=== PATIENT | female | born 1970 | race Caucasian/White ===

== ENCOUNTER 2020-03-21 22:15 | Observation (INO) | payer BC ==
[2020-03-21] MEDS ORDERED: ASPIRIN 81 MG CHEWABLE TABLET ONE (22:58)
[2020-03-21] MEDS ORDERED: NA CHLORIDE 0.9% 1,000 ML ONE (22:58)
[2020-03-21] MEDS ORDERED: NITROGLYCERIN 0.4 MG/TAB SL ONE (22:58)
[2020-03-21 23:13] LABS: Absolute Lymphocytes (CBC) 2.4 K/uL (0.7-4.9); Basophils % 0.6 % (0-1.3); Hematocrit 35.4 % (36.0-45.0); Lymphocytes % 44.4 % (15.3-44.8); MPV 7.8 fL (7.6-11.3); RBC Red Blood Cell Count 3.75 M/uL (3.86-4.86)
[2020-03-21 23:14] LABS: Protime INR 0.99
[2020-03-21 23:34] LABS: ALT/SGPT 23 U/L (12-78); AST/SGOT 17 U/L (15-37); Alkaline Phosphatase 71 U/L (45-117); BUN Blood Urea Nitrogen 20 mg/dL (7-18); Bicarbonate 29 mmol/L (21-32); Bilirubin Direct < 0.1 mg/dL (0-0.2); Bilirubin Total 0.2 mg/dL (0.2-1.0); Glucose Level 92 mg/dL (74-106); Lipase 213 U/L (73-393); Magnesium 2.3 mg/dL (1.8-2.4); NT PRO-BNP 77 pg/mL (<125); Potassium 3.5 mmol/L (3.5-5.1); Protein, Total 7.5 g/dL (6.4-8.2); Sodium Level 144 mmol/L (136-145); Troponin (Emerg Dept Use Only) < 0.02 ng/mL (0.0-0.045)
[2020-03-21] MEDS ORDERED: LIDOCAINE VISCOUS 2% SOLN 15 ML UDC ONE (23:58)
[2020-03-21] MEDS ORDERED: MAGNE/ALUM HYDROXD 30 ML UCUP ONE (23:58)
--- NOTE | 2020-03-22 00:18 | EDPHYS ---
Physician Documentation [facility] Name: Jazzy Rosa Age: 50 yrs Sex: Female : 1970 Arrival Date: 03/21/2020 Time: 22:16 Bed 18 Private MD: ED Physician Nestor Mondragon HPI: 03/21 23:00 This 50 yrs old Female presents to ER via Ambulatory with complaints of Chest cp Pain. 23:00 The patient or guardian reports chest pain that is located primarily in the substernal cp area, anterior chest wall. 23:00 Onset: today, at 19:30. cp 23:00 The pain does not radiate. The chest pain is described as a pressure. Duration: The cp patient or guardian reports a single episode, that is still ongoing, but improving. 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 RECYCLER: 22:20 LMP N/A - Post-menopause fc Historical: - Allergies: 22:46 No Known Allergies; fc - Home Meds: 22:46 Synthroid 75 mcg Oral tab 1 tab once daily [Active]; Edarbi 80 mg oral tab 1 tab once fc daily [Active]; - PMHx: 22:46 SVT; Frequent PVC's; Hypertension; Hypothyroidism; mitral valve prolapse; fc - PSHx: 22:46 Heart Ablasion; Thyroidectomy; Gastric Sleeve; fc - Immunization history:: Last tetanus immunization: up to date Flu vaccine is not up to date. - Social history:: Smoking status: Patient denies any tobacco usage or history of. Patient uses alcohol, occasionally. Patient/guardian denies using street drugs. ROS: 23:05 Cardiovascular: Positive for chest pain, Negative for edema, palpitations. cp 23:05 Eyes: Negative for injury, pain, redness, and discharge. cp 23:05 Constitutional: Negative for body aches, chills, fever, poor PO intake. 23:05 Respiratory: Negative for cough, shortness of breath, wheezing. 23:05 Abdomen/GI: Positive for nausea, Negative for abdominal pain, vomiting, diarrhea, constipation. 23:05 Back: Positive for pain at rest, of the left scapular area. 23:05 Neuro: Negative for altered mental status, headache, loss of consciousness, syncope, weakness. 23:05 All other systems are negative. Exam: 22:40 ECG was reviewed by the Attending Physician. cp 23:10 Constitutional: The patient appears in no acute distress, alert, awake, cp non-diaphoretic, non-toxic, well developed, well nourished. 23:10 Head/Face: Normocephalic, atraumatic. cp 23:10 Eyes: Periorbital structures: appear normal, Conjunctiva: normal, no exudate, no injection, Sclera: no appreciated abnormality, Lids and lashes: appear normal, bilaterally. 23:10 ENT: External ear(s): are unremarkable, Nose: is normal, Mouth: Lips: moist, Oral mucosa: moist, Posterior pharynx: Airway: no evidence of obstruction, patent. 23:10 Neck: ROM/movement: is normal, is supple, no range of motions limitations, no meningismus, no nuchal rigidity. 23:10 Chest/axilla: Inspection: normal, Palpation: is normal, no crepitus, no tenderness. 23:10 Cardiovascular: Rate: normal, Rhythm: regular, Pulses: Pulses are 2+ in right radial artery and left radial artery. Edema: is not appreciated, JVD: is not appreciated. 23:10 Respiratory: the patient does not display signs of respiratory distress, Respirations: normal, no use of accessory muscles, no retractions, labored breathing, is not present, Breath sounds: are clear throughout, no decreased breath sounds, no stridor, no wheezing. 23:10 Abdomen/GI: Inspection: abdomen appears normal, Bowel sounds: active, all quadrants, Palpation: soft, in all quadrants, mild abdominal tenderness, in the epigastric area, rebound tenderness, is not appreciated, voluntary guarding, is not appreciated, involuntary guarding, is not appreciated. 23:10 Back: ROM is normal. 23:10 Neuro: Orientation: to person, place \T\ time. Mentation: is normal, Motor: moves all fours, strength is normal. Vital Signs: 22:20 BP 126 / 81; Pulse 90; Resp 18; Temp 98.1(O); Pulse Ox 100% on R/A; Weight 86.18 kg fc (R); Height 5 ft. 6 in. (167.64 cm) (R); Pain 5/10; 23:03 BP 111 / 71; Pulse 73; Resp 16 S; Pulse Ox 99% on R/A; Pain 4/10; bb 23:50 BP 105 / 67; Pulse 83; Resp 14 S; Pulse Ox 96% on R/A; Pain 2/10; bb 03/22 00:40 BP 113 / 66; Pulse 58; Resp 14 S; Pulse Ox 100% on R/A; bb 02:27 BP 104 / 60; Pulse 59; Resp 14 S; Pulse Ox 99% on R/A; bb 03/21 22:20 Body Mass Index 30.67 (86.18 kg, 167.64 cm) fc MDM: 03/21 22:31 Patient medically screened. cp 23:00 Differential diagnosis: abnormal EKG, acute myocardial infarction, cholecystitis, cp Cholelithiasis esophagitis, gastritis, gastroesophageal reflux disease (GERD), pancreatitis, pulmonary embolus, stable angina, unstable angina. 23:36 The patient was given aspirin in the Emergency Department. cp 03/22 00:15 Physician consultation: Jean CASE was called at 00:15, was contacted at cp 00:15, regarding admission, to the telemetry unit. patient's condition. 00:16 Data reviewed: vital signs, nurses notes, lab test result(s), EKG, radiologic studies, cp plain films, I have discussed the patient's presentation/case with the attending Emergency Department Physician; and as a result, I will admit patient. 00:16 Test interpretation: by ED physician or midlevel provider: ECG, chest xray negative for cp infiltrates. 03/21 22:40 Order name: Basic Metabolic Panel; Complete Time: 23:35 cp 03/21 23:35 Interpretation: Normal except: CL 109; BUN 20; GFR 57. cp 03/21 22:40 Order name: CBC with Diff; Complete Time: 23:35 cp 03/21 22:40 Order name: LFT's; Complete Time: 23:35 cp 03/21 22:40 Order name: Magnesium; Complete Time: 23:35 cp 03/21 22:40 Order name: NT PRO-BNP; Complete Time: 23:35 cp 03/21 22:40 Order name: PT-INR; Complete Time: 23:35 cp 03/21 22:40 Order name: Troponin (emerg Dept Use Only); Complete Time: 23:35 cp 03/21 23:36 Interpretation: Within normal limits: TROPED < 0.02. cp 03/21 22:40 Order name: Lipase; Complete Time: 23:35 cp 03/22 00:46 Order name: COVID-19 ar5 03/22 01:16 Order name: Basic Metabolic Panel EDMS 03/22 01:16 Order name: Basic Metabolic Panel EDMS 03/22 01:16 Order name: Lipid Profile EDMS 03/22 01:16 Order name: Lipid Profile EDMS 03/22 01:16 Order name: Protime (+INR) EDMS 03/21 22:40 Order name: XRAY Chest (1 view) cp 03/21 22:40 Order name: EKG; Complete Time: 22:41 cp 03/21 22:40 Order name: Cardiac monitoring; Complete Time: 22:44 cp 03/22 01:13 Order name: CONS Physician Consult EDMS 03/22 01:16 Order name: Protime (+INR) EDMS 03/22 01:16 Order name: PTT, Activated Partial Thromb EDMS 03/22 01:16 Order name: PTT, Activated Partial Thromb EDMS 03/22 01:17 Order name: NPO EDMS 03/22 01:18 Order name: Echo with Doppler EDMS 03/22 05:19 Order name: Troponin I EDMS 03/21 22:40 Order name: EKG - Nurse/Tech; Complete Time: 22:44 cp 03/21 22:40 Order name: IV Saline Lock; Complete Time: 23:01 cp 03/21 22:40 Order name: Labs collected and sent; Complete Time: 23:01 cp 03/21 22:40 Order name: O2 Per Protocol; Complete Time: 22:44 cp 03/21 22:40 Order name: O2 Sat Monitoring; Complete Time: 22:44 cp EC/06 22:40 Rate is 74 beats/min. Rhythm is regular. PA interval is normal. QRS interval is normal. cp QT interval is normal. T waves are Flattened in leads III, V2, V3. Interpreted by me. Reviewed by me. Administered Medications: 22:50 Drug: Aspirin Chewable Tablet 324 mg Route: PO; bb 23:48 Follow up: Response: No adverse reaction bb 22:50 Drug: Nitroglycerin 0.4 mg Route: Sublingual; bb 23:48 Follow up: Response: No adverse reaction bb 22:58 Drug: NS 0.9% 1000 ml Route: IV; Rate: 1000 ml/hr; Site: right antecubital; bb 23:59 Follow up: IV Status: Completed infusion; IV Intake: 1000ml bb 23:49 Drug: GI Cocktail without - (Maalox Suspension 30 ml, Lidocaine Liquid 2 % 15 bb ml) Route: PO; 03/22 00:39 Follow up: Response: No adverse reaction; No change in condition bb 00:53 Drug: NS 0.9% 500 ml Route: IV; Rate: bolus; Site: right antecubital; bb 01:52 Follow up: IV Status: Completed infusion; IV Intake: 500ml bb 01:52 Drug: NS 0.9% 500 ml Route: IV; Rate: 125 ml/hr; Site: right antecubital; bb 01:52 Follow up: IV Status: Infusion continued upon admission bb Disposition: 03/22/20 00:17 Hospitalization ordered by Leanne Nevarez for Observation. Preliminary diagnosis is Chest pain, unspecified. - Bed requested for Telemetry/MedSurg (observation). - Status is Observation. jb4 - Condition is Stable. - Problem is new. - Symptoms have improved. Addendum: 04/03/2020 18:58 Co-signature as Attending Physician, Nestor Mondragon MD. p pierce Signatures: Dispatcher [employer] EDNestor Renteria MD MD pkl Chretien, Felicia, RN RN fc Ballard, Brenda, RN RN bb Page, Corey, PA PA cp Garcia, Cindy, RN RN cg Bryson, James, RN RN jb4 Sierra Corbett ar5 Corrections: (The following items were deleted from the chart) 03/21 22:39 22:20 Social history: Smoking status: Patient denies any tobacco usage or history of. fc Patient/guardian denies using alcohol, street drugs, fc 03/22 01:39 00:17 Hospitalization Ordered by Leanne Nevarez MD for Observation. Preliminary ar5 diagnosis is Chest pain, unspecified. Bed requested for Telemetry/MedSurg (observation). Status is Observation. Condition is Stable. Problem is new. Symptoms have improved. cp 05:09 01:39 03/22/2020 00:17 Hospitalization Ordered by Leanne Nevarez MD for Observation. cg Preliminary diagnosis is Chest pain, unspecified. Bed requested for [facility] ER HOLD. Status is Observation. Condition is Stable. Problem is new. Symptoms have improved. ar5 06:00 05:09 03/22/2020 00:17 Hospitalization Ordered by Leanne Nevarez MD for Observation. jb4 Preliminary diagnosis is Chest pain, unspecified. Bed requested for Telemetry/MedSurg (observation). Status is Observation. Condition is Stable. Problem is new. Symptoms have improved. cg
--- NOTE | 2020-03-22 00:18 | ER ---
Nurse's Notes [facility] Name: Jazzy Rosa Age: 50 yrs Sex: Female : 1970 Arrival Date: 03/21/2020 Time: 22:16 Bed 18 Private MD: Diagnosis: Chest pain, unspecified Presentation: 03/21 22:20 Chief complaint: Patient states: that she is having heavy chest pressure along with fc epigastric pain and nausea but denies any shortness of breath or vomiting. Saw Dr Morrell in [place] today (her manuscripts curator) and a Holter monitor was place on her. Coronavirus screen: Client denies travel out of the [place] in the last 14 days. Ebola Screen: Patient negative for fever greater than or equal to 101.5 degrees Fahrenheit, and additional compatible Ebola Virus Disease symptoms Patient denies exposure to infectious person. Patient denies travel to an Ebola-affected area in the 21 days before illness onset. Initial Sepsis Screen: Does the patient meet any 2 criteria? No. Patient's initial sepsis screen is negative. Does the patient have a suspected source of infection? No. Patient's initial sepsis screen is negative. Risk Assessment: Do you want to hurt yourself or someone else? Patient reports no desire to harm self or others. Onset of symptoms was March 21, 2020 at 19:30. 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 - Social history:: Smoking status: Patient denies any tobacco usage or history of. Patient uses alcohol, occasionally. Patient/guardian denies using street drugs. Screenin:20 Abuse screen: Denies threats or abuse. Nutritional screening: No deficits noted. fc Tuberculosis screening: No symptoms or risk factors identified. Fall Risk None identified. Assessment: 22:30 General: Appears in no apparent distress. uncomfortable, well groomed, Behavior is bb calm, cooperative. Pain: Complains of pain in chest Pain does not radiate. Pain currently is 4 out of 10 on a pain scale. Pain began earlier tonight Aggravated by no aggravating factors. Neuro: Level of Consciousness is awake, alert, obeys commands, Oriented to person, place, time, situation. Cardiovascular: Heart tones present Capillary refill < 3 seconds Patient's skin is warm and dry. Pulses are all present. Edema is absent. Respiratory: Airway is patent Respiratory effort is even, unlabored, Respiratory pattern is regular, Breath sounds are clear bilaterally. GI: Abdomen is non-distended, Bowel sounds present X 4 quads. Abd is soft and non tender X 4 quads. : No signs and/or symptoms were reported regarding the genitourinary system. Derm: Skin is pink, warm \T\ dry. Musculoskeletal: Circulation, motion, and sensation intact. 22:30 Reassessment: pt wearing Holter monitor. bb 23:33 Reassessment: Patient is alert, oriented x 3, equal unlabored respirations, skin bb warm/dry/pink. pt states chest pressure is still there but not as bad, awaiting diagnostic results. 03/22 00:39 Reassessment: Patient and/or family updated on plan of care and expected duration. Pain bb level reassessed. Patient is alert, oriented x 3, equal unlabored respirations, skin warm/dry/pink. pt instructed on need for admission by Robert Mcdonough PA verbalized understanding of and agrees to plan of care. IV site intact, patent no erythema or edema noted, awaiting room assignment. 00:54 Reassessment: Raúl CASE at bedside for discussion of admission. Pt states pain bb is still there but does not need pain medication at this time. 05:17 Reassessment: attempted to call report, instructed to wait for call back. jb4 06:00 Reassessment: Patient appears in no apparent distress at this time. Patient and/or jb4 family updated on plan of care and expected duration. Pain level reassessed. Patient is alert, oriented x 3, equal unlabored respirations, skin warm/dry/pink. Vital Signs: 03/21 22:20 BP 126 / 81; Pulse 90; Resp 18; Temp 98.1(O); Pulse Ox 100% on R/A; Weight 86.18 kg fc (R); Height 5 ft. 6 in. (167.64 cm) (R); Pain 5/10; 23:03 BP 111 / 71; Pulse 73; Resp 16 S; Pulse Ox 99% on R/A; Pain 4/10; bb 23:50 BP 105 / 67; Pulse 83; Resp 14 S; Pulse Ox 96% on R/A; Pain 2/10; bb 03/22 00:40 BP 113 / 66; Pulse 58; Resp 14 S; Pulse Ox 100% on R/A; bb 02:27 BP 104 / 60; Pulse 59; Resp 14 S; Pulse Ox 99% on R/A; bb 03/21 22:20 Body Mass Index 30.67 (86.18 kg, 167.64 cm) ED Course: 03/21 22:16 Patient arrived in ED. cl3 22:20 Arm band placed on Patient placed in a hallway bed, on a stretcher. fc 22:20 Patient has correct armband on for positive identification. Placed in gown. Bed in low fc position. Call light in reach. Side rails up X 1. vehicle monitor technician on. Pulse ox on. NIBP on. 22:20 No provider procedures requiring assistance completed. fc 22:29 Robert Mcdonough PA is PHCP. cp 22:29 Nestor Mondragon MD is Attending Physician. cp 22:29 Em Cruz RN is Primary Nurse. bb 22:39 Triage completed. fc 22:55 Initial lab(s) drawn, by me, sent to lab. EKG done, by ED staff, reviewed by Robert CASE. Inserted saline lock: 20 gauge in right antecubital area, using aseptic technique. Blood collected. Patient maintains SpO2 saturation greater than 95% on room air. 23:40 XRAY Chest (1 view) In Process Unspecified. EDMS 03/22 00:17 Leanne Nevarez MD is Hospitalizing Provider. cp 00:55 Patient admitted, IV remains in place. bb 02:28 Report given to Abraham Hair RN. bb Administered Medications: 03/21 22:50 Drug: Aspirin Chewable Tablet 324 mg Route: PO; bb 23:48 Follow up: Response: No adverse reaction bb 22:50 Drug: Nitroglycerin 0.4 mg Route: Sublingual; bb 23:48 Follow up: Response: No adverse reaction bb 22:58 Drug: NS 0.9% 1000 ml Route: IV; Rate: 1000 ml/hr; Site: right antecubital; bb 23:59 Follow up: IV Status: Completed infusion; IV Intake: 1000ml bb 23:49 Drug: GI Cocktail without - (Maalox Suspension 30 ml, Lidocaine Liquid 2 % 15 bb ml) Route: PO; 03/22 00:39 Follow up: Response: No adverse reaction; No change in condition bb 00:53 Drug: NS 0.9% 500 ml Route: IV; Rate: bolus; Site: right antecubital; bb 01:52 Follow up: IV Status: Completed infusion; IV Intake: 500ml bb 01:52 Drug: NS 0.9% 500 ml Route: IV; Rate: 125 ml/hr; Site: right antecubital; bb 01:52 Follow up: IV Status: Infusion continued upon admission bb Intake: 03/21 23:59 IV: 1000ml; Total: 1000ml. bb 03/22 01:52 IV: 500ml; Total: 1500ml. bb Outcome: 00:17 Decision to Hospitalize by Provider. cp 00:55 Instructed on the need for admit. bb 01:52 Admitted to ER Hold. Please see [facility] for further documentation. bb 01:52 Condition: stable 06:00 Admitted to Med/surg accompanied by tech, via stretcher, with chart, Report called to benjie Betancourt RN 06:00 Condition: stable 06:00 Discharge instructions given to patient, Instructed on the need for admit, Demonstrated understanding of instructions. 06:00 Patient left the ED. benjie Signatures: Dispatcher [employer] EDMS Missy Romero RN RN fc Ballard, Brenda, RN RN bb Page, Corey, PA PA cp Bryson, James, RN RN jb4 Lewis, Charde cl3 Corrections: (The following items were deleted from the chart) 03/21 22:39 22:20 Social history: Smoking status: Patient denies any tobacco usage or history of. fc Patient/guardian denies using alcohol, street drugs, fc
[2020-03-22] MEDS ORDERED: NA CHLORIDE 0.9% 1,000 ML ONE (00:59)
--- NOTE | 2020-03-22 01:37 | P.HP ---
Certification for Inpatient Patient admitted to: Observation With expected LOS: <2 Midnights Patient will require the following post-hospital care: None Practitioner: I am a practitioner with admitting privileges, knowledge of patient current condition, hospital course, and medical plan of care. Services: Services provided to patient in accordance with Admission requirements found in Title 42 Section 412.3 of the Code of Federal Regulations Patient History Date of Service: 03/22/20 Reason for admission: Acute Coronary Syndrome History of Present Illness: 50-year-old female with past medical history of mitral valve prolapse, cardiac ablation in 2016 for SVT and frequent PVCs, hypertension and hyperthyroidism presents to the emergency room complaining of chest pain. Patient states that she felt a pressure in the midsternum and states that it will intermittently radiate to the left arm underneath her axilla. States the onset was earlier today. States that she was concerned because she has had a history of rapid heart beats and PVCs that resulted in a cardiac ablation in 2016. States she has been doing great until recently and today she had chest pain which prompted her to come to the emergency room. States that her chest pain felt different than anything before. In the emergency room patient is alert and oriented x3, in no distress, pleasant and cooperative. Her lab work is fairly unremarkable. Her troponin is <0.02 x1. Rest of lab work is fairly unremarkable. EKG does show some flat T-waves in aVL and V2 and some slight inversion of T-waves in V2 and V3. Patient sees a security management specialist in [place] and is currently wearing a Holter monitor. States she has a stress test scheduled for morning and follow up with security management specialist at the time. Patient will be placed in observation and further evaluated. Allergies No Known Allergies Allergy (Unverified 03/22/20 01:22) - Past Medical/Surgical History Diabetic: No -: Cardiac ablation in 2016 -: History of SVT and PVCs -: Essential hypertension -: Hypothyroidism -: History of mitral valve prolapse -: Heart ablation -: Thyroidectomy -: Gastric sleeve Psychosocial/ Personal History: Lives at home, - Family History Family History: Reviewed- Non-Contributory - Social History Smoking Status: Never smoker Alcohol use: No CD- Drugs: No Caffeine use: No Place of Residence: Home Review of Systems General: As per HPI Eyes: Unremarkable ENT: Unremarkable Respiratory: Unremarkable Cardiovascular: Chest Pain, Palpitations, As per HPI Gastrointestinal: Unremarkable Genitourinary: Unremarkable Musculoskeletal: Unremarkable Integumentary: Unremarkable Neurological: Unremarkable Lymphatics: Unremarkable Physical Examination - Vital Signs Temperature: 98.1 F Blood Pressure: 126/81 Pulse: 83 Respirations: 14 Pulse Ox (%): 96 (RA) - Physical Exam General: Alert, In no apparent distress, Oriented x3 HEENT: Atraumatic, Normocephalic, PERRLA Neck: Supple, No Thyromegaly, Other (Trachea midline) Respiratory: Clear to auscultation bilaterally, Normal air movement Cardiovascular: No edema, Normal pulses, Regular rate/rhythm Capillary refill: <2 Seconds Gastrointestinal: Normal bowel sounds, Soft and benign, Non-distended Musculoskeletal: No clubbing, No swelling, No contractures Integumentary: No breakdown, No significant lesion, No tenderness/swelling Neurological: Normal gait, Normal speech, Normal strength at 5/5 x4 extr, Normal tone - Studies Laboratory Data (last 24 hrs) 03/21/20 22:55: PT 11.7, INR 0.99 03/21/20 22:55: WBC 5.4, Hgb 12.4, Hct 35.4 L, Plt Count 266 03/21/20 22:55: Sodium 144, Potassium 3.5, BUN 20 H, Creatinine 1.02, Glucose 92, Magnesium 2.3, Total Bilirubin 0.2, AST 17, ALT 23, Alkaline Phosphatase 71, Lipase 213 Assessment and Plan - Plan Impression: Acute Coronary Syndrome complicated by history of cardiac ablation in 2016: Essential hypertension: Hypothyroidism: Plan: Acute Coronary Syndrome complicated by history of cardiac ablation in 2016: Troponin of less than 0.02 x 1. Continue to trend troponin. Continue telemetry. Cardiology consult. Echocardiogram for the morning. Monitor. Essential hypertension: Will resume all medications once verified. Monitor blood pressure. Hypothyroidism: Will resume all medications once verified. Monitor blood pressure. Discharge Plan: Home Plan to discharge in: 48 Hours - Advance Directives Does patient have a Living Will: No Does patient have a Durable POA for Healthcare: No - Code Status/Comfort Care Code Status Assessed: Yes Time Spent Managing Pts Care (In Minutes): 55
[2020-03-22] MEDS ORDERED: NA CHLORIDE 0.9% 1,000 ML IV SCH (02:00)
[2020-03-22 02:07] VITALS: BMI 30.7
--- NOTE | 2020-03-22 05:56 | EKG ---
Test Date: 2020-03-21 Test Time: 22:39:30 Manager Consumer: JUAN LUIS MEASUREMENT RESULTS: Intervals: Rate: 74 WV: 154 QRSD: 94 QT: 346 QTc: 384 [place]: P: 44 WV: 154 QRS: 23 T: 56 INTERPRETIVE STATEMENTS: Normal sinus rhythm with sinus arrhythmia Nonspecific ST and T wave abnormality Abnormal ECG No previous ECG available for comparison Electronically Signed On 03-22-20 05:55:28 CDT by Scott Wynn
[2020-03-22 06:52] VITALS: O2SAT 99
--- NOTE | 2020-03-22 07:57 | RAD REPORT ---
EXAM DESCRIPTION: Bernadettet Single View03/21/2020 11:39 pm CLINICAL HISTORY: Chest pain COMPARISON: none FINDINGS: The lungs appear clear of acute infiltrate. The heart is probably upper limits normal siz e IMPRESSION: No acute abnormalities displayed
[2020-03-22 08:48] LABS: Thyroid Stimulating Hormone 1.57 uIU/mL (0.360-3.740)
[2020-03-22] MEDS ORDERED: INFLUENZA VACCINE (for 3y+) 0.5 ML DOSE IMVAC ONE (09:00)
[2020-03-22] MEDS ORDERED: ENOXAPARIN 80 MG/0.8 ML SQ SCH (09:00)
[2020-03-22] MEDS ORDERED: ASPIRIN 81 MG CHEWABLE TABLET PO SCH (09:00)
[2020-03-22] MEDS ORDERED: ACETAMINOPHEN 500 MG TAB ONE (10:06)
--- NOTE | 2020-03-22 11:42 | P.DS ---
Admission Date: 03/22/20 Discharge Date: 03/22/20 Disposition: ROUTINE DISCHARGE Discharge Condition: GOOD Reason for Admission: Acute Coronary Syndrome Brief History of Present Illness: Please refer to H&P Hospital Course: Patient is a 50 year old female with a PMH of mitral valve prolapse, SVT and PVCs s/p ablation and subtotal thyroidectomy for thyroid adenoma. She was admitted overnight for chest pain. ACS was ruled out with negative troponins. Her thyroid function test was normal, and her echocardiogram unremarkable. She had occasional PVC's on telemetry but remained in sinus rhythm for the most part. 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 She currently has a holter monitor in place. She was scheduled to have a nuclear stress test tomorrow. Vital Signs/Physical Exam: Temp Pulse Resp BP Pulse Ox 97.7 F 63 20 129/77 98 03/22/20 08:00 03/22/20 08:00 03/22/20 08:00 03/22/20 08:00 03/22/20 08:00 General: Alert, In no apparent distress, Cooperative HEENT: Atraumatic, Normocephalic, Other (no thyroimegaly or thyroid tenderness), EOMI Neck: Supple, JVD not distended, No Thyromegaly, No LAD Respiratory: Clear to auscultation bilaterally, Normal air movement Cardiovascular: No edema, Normal pulses, Regular rate/rhythm, Normal S1 S2 Gastrointestinal: Normal bowel sounds, Soft and benign, Non-distended Musculoskeletal: No clubbing, No swelling, No contractures, No erythema, No tenderness, No warmth Integumentary: No rashes, No breakdown, No significant lesion, No tenderness/swelling, No erythema, No warmth, No cyanosis Neurological: Normal speech, Normal tone, Normal affect Laboratory Data at Discharge: WBC 5.4 K/uL (4.3-10.9) 03/21/20 22:55 Hgb 12.4 g/dL (12.0-15.0) 03/21/20 22:55 Hct 35.4 % (36.0-45.0) L 03/21/20 22:55 Plt Count 266 K/uL (152-406) 03/21/20 22:55 PT 11.7 SECONDS (9.5-12.5) 03/21/20 22:55 INR 0.99 03/21/20 22:55 Sodium 144 mmol/L (136-145) 03/21/20 22:55 Potassium 3.5 mmol/L (3.5-5.1) 03/21/20 22:55 BUN 20 mg/dL (7-18) H 03/21/20 22:55 Creatinine 1.02 mg/dL (0.55-1.3) 03/21/20 22:55 Glucose 92 mg/dL (74-106) 03/21/20 22:55 Magnesium 2.3 mg/dL (1.8-2.4) 03/21/20 22:55 Total Bilirubin 0.2 mg/dL (0.2-1.0) 03/21/20 22:55 AST 17 U/L (15-37) 03/21/20 22:55 ALT 23 U/L (12-78) 03/21/20 22:55 Alkaline Phosphatase 71 U/L (45-117) 03/21/20 22:55 Troponin I < 0.02 ng/mL (0.0-0.045) 03/22/20 04:42 Lipase 213 U/L (73-393) 03/21/20 22:55 Home Medications: Aspirin Chewable [Aspirin Chewable*] 81 mg PO DAILY tab.chew 03/22/20 Diet: AHA
[2020-03-22 12:20] VITALS: BP 106/66; TEMP 98.2
--- NOTE | 2020-03-23 07:35 | ECHO ---
HEIGHT: 5 ft 6 in WEIGHT: 190 lb 4.8 oz DATE OF STUDY: 03/22/[address]: Jean Keith 2-DIMENSIONAL: YES M.MODE: YES DOPPLER: YES COLOR FLOW: YES TDS: PORTABLE: DEFINITY: BUBBLE STUDY: DIAGNOSIS: CHEST PAIN CARDIAC HISTORY: CATHERIZATION: SURGERY: PROSTHETIC VALVE: PACEMAKER: MEASUREMENTS (cm) DIASTOLIC (NORMALS) SYSTOLIC (NORMALS) IVSd 0.8 (0.6-1.2) LA Diam 3.5 (1.9-4.0) LVEF 59% LVIDd 4.4 (3.5-5.7) LVIDs 3.0 (2.0-3.5) %FS 31% LVPWd 0.9 (0.6-1.2) Ao Diam 2.6 (2.0-3.7) 2 DIMENSIONAL ASSESSMENT: RIGHT ATRIUM: NORMAL LEFT ATRIUM: NORMAL RIGHT VENTRICLE: NORMAL LEFT VENTRICLE: NORMAL TRICUSPID VALVE: NORMAL MITRAL VALVE: NORMAL PULMONIC VALVE: NORMAL AORTIC VALVE: NORMAL PERICARDIAL EFFUSION: NONE AORTIC ROOT: NORMAL LEFT VENTRICULAR WALL MOTION: NORMAL DOPPLER/COLOR FLOW: MILD TRICUSPID REGURGITATION. COMMENTS: MILD TRICUPSID REGURGITATION. LEFT VENTRICULAR SIZE AND FUNCTION. NO EFFUSION. TECHNOLOGIST: YANDY COWAN
--- OUTSIDE RECORDS SUMMARY | 2020-03-23 17:02 | XMS REPORT | Continuity of Care Document ---
:1970 Author Organization [facility] Care Team Providers Name Role Phone [facility] Unavailable Un available Problems Problem Status Onset Classification Date Comments Sourc e Date Reported Weight gain Active Diagnosis 11/11/2019 2.16.84 0. 1.390488. 4.391.11. 650707 Acquired Active Diagnosis 11/11/2019 2.16.840. hypothyroidism 1.113 883. 4.391.11. 269865 Vaginal dryness, Active Problem 11/11/2019 2. 16.840. menopausal 1.026027. 4.391.11. 989081 Hot flashes due to Active Problem 11/11/2019 2.16.840. menopause 1.556629. 4.391.11. 387809 Obesity, Active Problem 11/11/2019 2.16.840. unspecified 1.233372 . 4.391.11. 788848 H/O partial Active Problem 11/11/2019 2.16.84 0. thyroidectomy 1.1138 83. 4.391.11. 331939 Essential Active Problem 11/11/2019 2.16.840. (primary) 1.154769. hypertension 4.391.1 1. 463909 Avitaminosis D Active Problem 11/11/2019 2.16 .840. 1.832175. 4.391.11. 449128 Bariatric surgery Active Diagnosis 11/11/2019 2 .16.840. status 1.809872. 4.391.11. 022097 Left shoulder Active Diagnosis 11/11/2019 2.16. 840. pain, unspecified 1. 152402. chronicity 4.391.11. 827545 Fatigue, Active Diagnosis 11/11/2019 2.16.840. unspecified type 1.1 44805. 4.391.11. 136200 Menopause Active Diagnosis 11/11/2019 2.16.840. 1.520230. 4.391.11. 320152 Medications Medication Details Route Status Patient Ordering Order Source Instructions Provider Date Qsymia 1 capsule Orally Active 7.5-46 MG MARKAN 84 Orally Once a 2019 0.1.113 day 883.4.3 91.11.3 86441 Qsymia 1 capsule Orally Active 3.75-23 MG MARKAN 84 Orally Once a 2019 0.1.113 day 883.4.3 91.11.3 23875 MedroxyPROGESTERone 1 tablet Orally Active 5 MG Orally MARKAN 08.01.83 Acetate Once a day 2018 0.1.113 for the first 883.4.3 ten day of 91.11.3 each month 52358 Divigel 1 packet Transdermal Active 0.5 MG/0.5GM MARKAN 08.01.8 4 to skin Transdermal 2018 0.1.113 Once a day 883.4.3 91.11.3 02380 Clonidine HCl 1 tablet Orally Active 0.1 MG Orally MARKAN . 6.84 once a day at 2018 0.1.113 bedtime for 883.4.3 hot flashes 91.11.3 43124 Synthroid 1 tablet Orally Active 75 MCG Orally MARKAN 08.01.84 on an Once a day 2017 0.1.113 empty 883.4.3 stomach 91.11.3 [place] [address] morning Edarbi 1 tablet Orally Active 80 MG Orally MARKAN 84 Once a day 0.1.113 883.4.3 91.11.3 60476 Iron not NA Active MARKAN 08.01.83 defined 0.1.113 883.4.3 91.11.3 61379 Multivitamin not NA Active MARKAN 08.01.83 defined 0.1.113 883.4.3 91.11.3 23839 Calcium not NA Active MARKAN 08.01.83 defined 0.1.113 883.4.3 91.11.3 57343 Allergies, Adverse Reactions, Alerts Substance Category Reaction Severity Reaction Status Date Comments S ource type Reported Qsymia Adverse cannot take Adverse Active Reaction due to heart Reaction 0 0 .1.113 issues 883.4.3 91.11.3 55443 contrave Adverse No wt loss Adverse Active 2. 16.84 Reaction improvment Reaction 0 0.1 .113 883.4.3 91.11.3 09913 Immunizations No Data Provided for This Section Results No Data Provided for This Section Pathology Reports No Data Provided for This Section Diagnostic Reports No Data Provided for This Section Consultation Notes No Data Provided for This Section Discharge Summaries No Data Provided for This Section History and Physicals No Data Provided for This Section Vital Signs Vital Sign Value Date Comments Source Weight 193.8 11/10/2019 2.16.840.1.1138 8 3.4.391.11.3086 0 7 Height 66 11/10/2019 2.16.840.1.1138 8 3.4.391.11.3086 0 7 Temperature Oral (F) 98.5 F 11/10/2019 2.16.84 0.1.59439 3.4.391.11.3086 0 7 Heart Rate 57 11/10/2019 2.16.840.1.1138 8 3.4.391.11.3086 0 7 Diastolic (mm Hg) 86 11/10/2019 2.16.840.1 .42944 3.4.391.11.3086 0 7 Systolic (mm Hg) 123 11/10/2019 2.16.840.1. 63604 3.4.391.11.3086 0 7 Encounters No Data Provided for This Section Procedures No Data Provided for This Section Assessment and Plan No Data Provided for This Section Plan of Care No Data Provided for This Section Social History No Data Provided for This Section Family History No Data Provided for This Section Advance Directives No Data Provided for This Section Functional Status No Data Provided for This Section
--- OUTSIDE RECORDS SUMMARY | 2020-03-23 17:02 | XMS REPORT | Clinical Summary ---
:1970 Author Organization [facility] Address [address] [place] [address] Care Team Providers Name Role Phone Ari Wilks MD Primary Care Provider Allergies No Known Active Allergies Medications Medication Sig Dispensed Refills Start Date End Date Status azilsartan medoxomiL 0 01/16/2019 Active (Edarbi) 80 mg tablet Synthroid 75 mcg tablet 0 12/22/2019 Active medroxyPROGESTERone 0 12/07/2019 Active (PROVERA) 5 MG tablet omeprazole (PriLOSEC) 40 0 12/07/2019 Active MG capsule DivigeL 0.5 mg/0.5 gram 0 12/07/2019 Active (0.1 %) gel in packet meloxicam (Mobic) 15 mg Take 1 30 tablet 1 01/04/202003/04 tabletIndications: tablet (15 Subacromial impingement of mg total) by right shoulder, mouth daily Subacromial impingement, for 60 days. right, Calcific tendinitis of both shoulders Active Problems No known active problems Encounters Date Type Specialty Care Team Description 02/02/2020 Lab Lab Rocky Guerra MD Encounter for other preprocedural examination (Pr imary Dx) 02/02/2020 Travel 01/07/2020 Telephone Orthopedic Surgery Silvia Miramontes, Sub acromial bursitis of both shoulders (Primary Dx); RIKI Subacromial imp ingement of right shoulder; Subacromial imp ingement, right; Calcific tendin itis of both shoulders 01/04/2020 Office Visit Orthopedic Surgery Kevin Sharma, Calc ific tendinitis of both shoulders (Primary Dx); Chronic pain of both shoulders; Subacromial bur sitis of both shoulders; Subacromial imp ingement of right shoulder; Subacromial imp ingement, right 01/04/2020 Travel 12/29/2019 Travel after 03/22/2019 Surgical History Surgery Date Site/Laterality Comments [place] ANESTH,PACEMAKER Cardiac Ablation 2015 INSERTION BARIATRIC SURGERY gastric sleeve October 2016 ABDOMINAL SURGERY Gastric Sleeve Medical History Medical History Date Comments Hypertension January 2019 2nd time, 1st time w as in 2015 after Cardiac Ablati on Thyroid disease 1/2 of thyroid removed in 2017 Family History Medical History Relation Name Comments Heart attack Maternal Grandfather Javi Meraz Diabetes Son Milan Rosa Relation Name Status Comments Maternal Grandfather Javi Yates Social History Tobacco Use Types Packs/Day Years Used Date Never Smoker 0 0 Smokeless Tobacco: Never Used Alcohol Use Drinks/Week oz/Week Comments Yes 1 Glasses of wine 2.0 0 Cans of beer 0 Shots of liquor 1 Standard drinks or equivalent Sex Assigned at Date Recorded Female 01/03/2020 11:19 AM CDT Last Filed Vital Signs Vital Sign Reading Time Taken Comments Blood Pressure - - Pulse - - Temperature - - Respiratory Rate - - Oxygen Saturation - - Inhaled Oxygen Concentration - - Weight 86.2 kg (190 lb) 01/04/2020 2:02 PM CDT Height 167.6 cm (5' 6") 01/04/2020 2:02 PM CDT Body Mass Index 30.67 01/04/2020 2:02 PM CDT Plan of Treatment Health Maintenance Due Date Last Done Comments CERVICAL CANCER SCREENING 1990 BREAST CANCER SCREENING 2019 COLONOSCOPY SCREENING 2019 SHINGLES VACCINES (#1) 2019 INFLUENZA VACCINE 01/15/2020 Procedures Procedure Name Priority Date/Time Associated Diagnosis Comme nts COVID-19 QUALITATIVE Routine 02/02/2020 11:15 Encounter for ot her Results for this PCR AM CDT preprocedural procedure are in examination the results section. XR SHOULDERS BILATERAL Routine 01/04/2020 2:15 Chronic pain o f both Results for this PM CDT shoulders procedure are i n the results section. MO ARTHROCENTESIS Routine 01/04/2020 2:10 Subacromial bursiti s Results for this ASPIR&/INJ MAJOR PM CDT of both shoulde rs procedure are in JT/BURSA W/O US Calcific tendinitis the r esults of both shoulders section. after 03/22/2019 Results COVID-19 qualitative PCR (02/02/2020 11:15 AM CDT) Interpretation Negative results do not prec lude 2019-nCoV infection and should not be used as the sole basis for treatment or other patient management decisions. Negative results must be combined with clinical observations, patient history, and epidemiological BROTHERS information. [facility] COVID-19 qualitative Not-Detected Not-Detecte BROTHERS PCR result d [facility] COVID- qualitative See link below for BROTHERS PCR PDF Lab [facility] ReportComment: Case HOSPITAL Number: [id number] Specimen Nasopharyngeal swab Performing Organization Address [facility] Phon e Number [facility] DEPARTMENT OF PATHOLOGY AND [address], [place] [address] GENOMIC MEDICINE [facility] [address] [place] [address] [facility] XR Shoulders Bilateral (01/04/2020 2:15 PM CDT) Specimen Narrative Performed At This result has an attachment that is no t available. 3 views of bilateral shoulders reveal no acute fracture or dislocation. [facility] Calcification at supraspinatus insertion on greater tu berosity present bilaterally. Overall alignment and joint spaces main tained. Performing Organization Address [facility] Phon e Number [facility] [address] [place] [address] Large Joint Arthrocentesis: shoulder, Bilateral subacromial bursa (01/04/2020 2:10 PM CDT) Narrative Performed At Lesvia Rausch, JAMES 020 2:46 PM Large Joint Arthrocentesis: shoulder, Bi lateral subacromial bursa Consent given by: patient Site marked: site marked Timeout: Immediately prior to procedure a time out was called to verify the correct patient, procedure, equipmen t, director of sales support and site/side marked as required Supporting Documentation Indications: pain Procedure Details Ultrasound guided: no Platelet Rich Plasma Used: no PRP Used Location: shoulder - Bilateral subacromi al bursa Right side: Needle size: 22 G Approach: posterior Right shoulder medications administered: 2 mL bupivaca ine 0.5 % (5 mg/mL); 2 mL lidocaine 10 mg/mL (1 %); 80 mg met hylPREDNISolone acetate 40 mg/mL Patient tolerance: patient tolerated the procedure wel l with no immediate complications Left side: Needle size: 22 G Approach: posterior Left shoulder medications administered: 2 mL bupivacai ne 0.5 % (5 mg/mL); 2 mL lidocaine 10 mg/mL (1 %); 80 mg met hylPREDNISolone acetate 40 mg/mL Patient tolerance: patient tolerated the procedure wel l with no immediate complications after 03/22/2019 Advance Directives For more information, please contact: [phone] Type Date Recorded Patient Center Administrator Explanati on Advance Directives, Living Will and Medical Power of Director [employer]
--- OUTSIDE RECORDS SUMMARY | 2020-03-23 17:03 | XMS REPORT | Continuity of Care Document ---
:1970 Author Organization [facility] t Address [address] [place] [address] Care Team Providers Name Role Phone Phi Wilks MD Primary Care Physician Charlie GONZALEZ STasia Attending Clinician Fe LYN Attending Clinician Unavailable Wade Sharma MD Attending Clinician Obie Kumar Attending Clinician Unavailable Obie Kumar Admitting Clinician Unavailable Payers Payer Name Policy Type Policy Effective Date Expiration Date [facility] Number BCBSBCBS CHOICE [id number] 2017 [place] PPO/FEDERAL 00:00:00 Yarsanism EMPL [id number] 2017-Presen tPPO Problems Condition Condition Condition Status Onset Resolution Last Treating Co mments Source Name Details Category Date Date Treatment Clinician Date Weight Diagnosis Active 2019-11-11 Mem oria gain 04:10:01 l Weight Juan Carlos gain Active Diagnosis 11/11/2019 2..840.1 .907413.4. 391.11.308 607 Acquired Diagnosis Active 2019-11-11 M emoria hypothyroi 04:10:01 l dism Acquired Adama n hypothyroi dism Active Diagnosis 11/11/2019 2.16840.1 .519602.4. 391.11.308 607 Vaginal Problem Active 2019-11-11 Noah brandt dryness, 04:10:01 l menopausal Vaginal Her hartman dryness, menopausal Active Problem 11/11/2019 2.16.840.1 .956515.4. 391.11.308 607 Obesity, Problem Active 2019-11-11 Mem oria unspecifie 04:10:01 l d Obesity, Adama n unspecifie d Active Problem 11/11/2019 2.16.840.1 .809031.4. 391.11.308 607 H/O Problem Active 2019-11-11 Memor ia partial 04:10:01 l thyroidect H/O Adama n sb partial thyroidect sb Active Problem 11/11/2019 2.16.840.1 .811188.4. 391.11.308 607 Essential Problem Active 2019-11-11 Me moria (primary) 04:10:01 l hypertensi Adama n on Essential (primary) hypertensi on Active Problem 0 2.16.840.1 .696581.4. 391.11.308 607 Avitaminos Problem Active 2019-11-11 M emoria is D 04:10:01 l [place] Avitaminos is D Active Problem 11/11/2019 2.16.840.1 .796418.4. 391.11.308 607 Bariatric Diagnosis Active 2019-11-11 Memoria surgery 04:10:01 l status [place] Bariatric surgery status Active Diagnosis 11/11/2019 2.16.840.1 .930223.4. 391.11.308 607 Left Diagnosis Active 2019-11-11 Mem oria shoulder 04:10:01 l pain, Left [place] unspecifie shoulder d pain, chronicity unspecifie d chronicity Active Diagnosis 11/11/2019 2.16.840.1 .151466.4. 391.11.308 607 Fatigue, Diagnosis Active 2019-11-11 M emoria unspecifie 04:10:01 l d type Fatigue, Adama n unspecifie d type Active Diagnosis 11/11/2019 2.16.840.1 .941577.4. 391.11.308 607 Menopause Diagnosis Active 2019-11-11 Memoria 04:10:01 l Juan Carlos Menopause Active Diagnosis 11/11/2019 2.16.840.1 .312140.4. 391.11.308 607 Allergies, Adverse Reactions, Alerts Allergy Allergy Status Severity Reaction(s) Onset Inactive Treating Comm ents Source Name Type Date Date Clinician michelle martinez Active No wt loss 2019- Me moria improvment 5-27 l 00:00: [place] 00 No Known DA Active [facility]-09 [facility] [place] Family History Family Member Diagnosis Comments Start Date Stop Date Source Maternal grandfather Heart attack Ho uskarl Yarsanism Natural son Diabetes [place] Metho dist Social History Social Habit Start Date Stop Date Quantity Comments Source Sex Assigned At F [facility] ethodist Tobacco use and 2020-01-04 2020-01-04 Never used [facility] ethodist exposure 00:00:00 00:00:00 Alcohol intake 2020-01-04 2020-01-04 Current drinker Argeliat on Yarsanism 00:00:00 00:00:00 of alcohol (finding) Smoking Status Start Date Stop Date Source Never smoker [place] Methodis t Medications Ordered Filled Start Stop Current Ordering Indication Dosage Frequency Signature Comments Components Source Medication Medication Date Date Medication? Clinician (SIG) Name Name meloxicam 2020- [facility] 01-03 09-19 tendinitis tablet (15 Methodi mg tablet 00:00: 23:59 of both mg total) st 00 :00 shoulders by mouth daily for 60 days. Synthroid 2019-0 Yes [place] 75 mcg 7-08 [facility] tablet 00:00: st 00 medroxyPROG 2019-0 Yes Argeliato n ESTERone 6-23 [facility] (PROVERA) 5 00:00: st MG tablet 00 omeprazole Yes [place] (PriLOSEC) 6-23 [facility] 40 MG 00:00: st capsule 00 DivigeL 0.5 2019-0 Yes [place] mg/0.5 gram 6-23 [facility] (0.1 %) gel 00:00: st in packet 00 Edarbi 2019-0 Yes HUNTER 1 tablet Memor ia 11-10 MARKAN l 04:10: Iron 2019-0 Yes HUNTER not Memoria 11-10 JEANNA defined l 04:10: Multivitami 2019-0 Yes HUNTER not Noah brandt n 11-10 LYLYAN defined l 04:10: Calcium 2020-0 Yes HUNTER not Memoria 5-28 MARKAN defined l 04:10: Qsymia 2019-0 Yes HUNTER 1 capsule Noah brandt 5-27 MARKAN l 00:00: Qsymia 2019-0 Yes HUNTER 1 capsule Noah brandt 5-27 MARKAN l 00:00: MedroxyPROG 2019-1 Yes HUNTER 1 tablet Memoria ESTERone 2-05 MARKAN l Acetate 00:00: Divigel 2019- Yes HUNTER 1 packet Noah brandt 0-29 MARKAN to skin l 00:00: Clonidine 2019-1 Yes HUNTER 1 tablet Me moria HCl 0-17 MARKAN l 00:00: azilsartan 2019-0 Yes [place] medoxomiL 8-03 Method[facility] (Edarbi) 80 00:00: st mg tablet 00 Synthroid Yes HUNTER 1 tablet Me moria 8-03 MARKAN on an l 00:00: empty stomach in the morning Vital Signs Vital Name Observation Time Observation Value Comments Source Body height 2020-01-04 14:02:00 167.6 cm [facility] Body weight 2020-01-04 14:02:00 86.183 kg [place] Yarsanism BMI 2020-01-04 14:02:00 30[facility]67 [facility] 2019-11-10 16:30:00 [facility] Height 2019-11-10 16:30:00 [facility] Temperature Oral (F) 2019-11-10 16:30:00 98.5 F [facility] Heart Rate 2019-11-10 16:30:00 [facility] [place] Diastolic (mm Hg) 2019-11-10 16:30:00 [facility] orial [place] Systolic (mm Hg) 2019-11-10 16:30:00 Noah rial [place] Procedures Procedure Date / Time Performing Clinician Source Performed COVID-19 QUALITATIVE PCR 2020-02-02 11:15:00 Obie Barba Yarsanism XR SHOULDERS BILATERAL 2020-01-04 14:15:46 Velasquez Sharma Yarsanism NE ARTHROCENTESIS 2020-01-04 14:10:00 Lesvia Rausch ethodist ASPIR&/INJ MAJOR JT/GAGAN Becker W/O Plan of Care Planned Activity Planned Date Details Comments Source Future Scheduled 2020-01-15 INFLUENZA VACCINE [place] Y[facility]ism Test 00:00:00 [code = INFLUENZA VACCINE] Future Scheduled 2019 BREAST CANCER [place] Me thodist Test 00:00:00 SCREENING [code = BREAST CANCER SCREENING] Future Scheduled 2019 COLONOSCOPY SCREENING Ho hermann Yarsanism Test 00:00:00 [code = COLONOSCOPY SCREENING] Future Scheduled 2019 SHINGLES VACCINES [place] [facility]ism Test 00:00:00 (#1) [code = SHINGLES VACCINES (#1)] Future Scheduled 1990 Screening for [facility] thodist Test 00:00:00 malignant neoplasm of cervix (procedure) [code = 705394474] Encounters Start End Encounter Admission Attending Care Care Encounter Source Date/Time Date/Time Type Type Clinicians Facility Department ID 2020-02-02 2020-02-02 Outpatient OBIE BARBA [facility] [id number] [place] 00:00:00 00:00:[address] 2020-01-04 2020-01-04 Outpatient CARMEN [facility] [id number] [place] 00:00:00 00:00:00 VELASQUEZ 462 Method i 2020-01-04 2020-01-04 Outpatient [facility] [id number] [place] 00:00:00 00:00:00 VELASQUEZ [address] 2019-11-10 2019-11-10 Outpatient Nupur A. Nupur A. [id number] [facility] 11:30:00 11:30:00 Milena CASE PA Results Test Description Test Time Test Comments Results Result Comments Source COVID-19 qualitative PCR 2020-02-02 14:59:16 Test Item Value Reference Range Interpretation Comme nts Interpretation (test code = Negative results do not [id number]) preclude 2019-nCoV infection and should not be used as the sole basis for treatment or other patient management decisions. Negative results must be combined with clinical observations, patient history, and epidemiological information. COVID-19 qualitative PCR Not-Detected Not-Detected result (test code = 37125-2) COVID-19 qualitative PCR See link below for PDF Lab Case Number: (test code = 7070) Report [id number] 049 [place] MethodistLarge Joint Arthrocentesis: shoulder, Bilateral subacromial [id number] 14:10:00Lesvia Rausch NP 01/04/2020 2:46 PMLarge Joint Arthrocentesis: shoulder, Bilateral subacromial bursaConsent given by: patientSite marked: site markedTimeout: Immediately prior to procedure a time out was called to verify the correct patient, procedure, equipment, application support and site/side marked as required Supporting DocumentationIndications: pain Procedure DetailsUltrasound guided:noPlatelet Rich Plasma Used: no PRP UsedLocation: shoulder - Bilateral subacromial bursa Right side:Needle size: 22 GApproach: posteriorRight shoulder medications administered: 2 mL bupivacaine 0.5 % (5 mg/mL); 2 mL lidocaine 10 mg/mL (1 %); 80 mg methylPREDNISolone acetate 40 mg/mLPatient tolerance: patient tolerated the procedure well with no immediate complications Left side:Needle size: 22 GApproach: posteriorLeft shoulder medications administered: 2 mL bupivacaine 0.5 % (5 mg/mL); 2 mL lidocaine 10 mg/mL (1 %); 80 mg methylPREDNISolone acetate 40 mg/mLPatient tolerance: patient tolerated the procedure well with no immediate complications [place] [facility] 7 [id number] 11:55:00 Test Item Value Reference Range Interpretation Comments SODIUM (test code = NA) 140 mEq/L 135-145 N POTASSIUM (test code = K) 3.8 mEq/L 3.5-5.0 N CHLORIDE (test code = CL) 103 mEq/L 100-115 N CARBON DIOXIDE (test code = CO2) 27 mEq/L 22-31 N ANION GAP (test code = GAP) 13.50 10-20 N GLUCOSE (test code = GLU) 97 mg/dL 65-110 N BLOOD UREA NITROGEN (test code = 14 mg/dL 7-18 N BUN) GLOMERULAR FILTRATION RATE (test 67 ml/min >60 N code = GFR) CREATININE (test code = CREAT) 0.9 mg/dL 0.5-1.0 N CALCIUM (test code = CA) 9.0 mg/dL 8.4-10.2 N HCG SERUM [id number] 11:55:00 Test Item Value Reference Range Interpretation Comments HCG SERUM QUAL (test code = HCGQL) NEGATIVE CHEMISTRY 7 [id number] 11:50:00 Test Item Value Reference Range Interpretation Comments SODIUM (test code = NA) mEq/L 135-145 POTASSIUM (test code = K) mEq/L 3.5-5.0 CHLORIDE (test code = CL) mEq/L 100-115 CARBON DIOXIDE (test code = CO2) mEq/L 22-31 ANION GAP (test code = GAP) 10-20 GLUCOSE (test code = GLU) mg/dL 65-110 BLOOD UREA NITROGEN (test code = BUN) mg/dL 7-18 CREATININE (test code = CREAT) mg/dL 0.5-1.0 CALCIUM (test code = CA) mg/dL 8.4-10.2 HCG SERUM [id number] 11:50:00 Test Item Value Reference Range Interpretation Comments HCG SERUM QUAL (test code = HCGQL) NEGATIVE CBC W/AUTO [id number] 11:38:00 Test Item Value Reference Range Interpretation Comments WHITE BLOOD CELL (test code = WBC) 8.0 K/mm3 6.6-12.1 N RED BLOOD CELL (test code = RBC) 4.09 M/mm3 3.45-5.01 N HEMOGLOBIN (test code = HGB) 13.1 g/dL 10.7-13.9 N HEMATOCRIT (test code = HCT) 40.7 % 32.1-42.1 N MEAN CELL VOLUME (test code = MCV) 100 fL 84.1-94.8 H MEAN CELL HGB (test code = MCH) 32.0 pg 27-35 N MEAN CELL HGB CONCETRATION (test 32.2 gm/dL 32.2-34.1 N code = MCHC) RED CELL DISTRIBUTION WIDTH (test 12.1 % 12.4-16.5 L code = RDW) PLATELET COUNT (test code = PLT) 301 K/mm3 133-385 N IMMATURE PLATELET FRACTION (test 0.0 % 0.0-10.8 N code = IPF) MEAN PLATELET VOLUME (test code = 10.3 fl 9.1-12.7 N MPV) NEUTROPHIL % (test code = NT%) 72.2 % 56.5-79.4 N LYMPHOCYTE % (test code = LY%) 18.6 % 14.3-34.3 N MONOCYTE % (test code = MO%) 6.8 % 5.1-10.4 N EOSINOPHIL % (test code = EO%) 1.3 % 0.1-3.0 N BASOPHIL % (test code = BA%) 0.8 % 0.1-1.0 N NEUTROPHIL # (test code = NT#) 5.8 K/mm3 LYMPHOCYTE # (test code = LY#) 1.5 K/mm3 MONOCYTE # (test code = MO#) 0.5 K/mm3 EOSINOPHIL # (test code = EO#) 0.10 K/mm3 BASOPHIL # (test code = BA#) 0.1 K/mm3 RBC MORPHOLOGY REQUIRED (test code NORMAL NORMAL = RBCM) PLATELET MORPHOLOGY REQUIRED (test NORMAL NORMAL code = PLTMR) - XR CHEST 2 [id number] 10:55:00 Patient Name: LESLIE VENTURA Unit No: [id number] EXAMS: CPT CODE: [id number] XR CHEST 2 V 29984 CHEST RADIOGRAPHS - PA AND LATERAL: COMPARISON: None CLINICAL HISTORY: PRE OP The cardiopericardial silhouette is within normal limits. Lungs are clear. No vascular congestion or pneumothorax. Surgical clips noted in the left upper quadrant of the abdomen. IMPRESSION: No acute pulmonary abnormality. at 1055 Reported and signed by: Moses Bell MD CC: Katty Jalloh MD Technologist: Debbie Mccoy, RT, CT Trnscrbd D/ (1058) [email or web address] Orig Print D/T: S: 09/01/2018 (1008) [facility] NAME: LESLIE VENTURA Eddie Radiology Department PHYS: SARA. - Katty Jalloh [address] : 1970 AGE: 48 SEX: F [place], [place] [address] LOC: ROMA PHONE #: [phone] EXAMDATE: 09/01/2018 STATUS: PRE [facility] FAX #: [phone] RAD NO: Page 1 Signed [id number] SURGICAL PATHOLOGY, LEVEL [id number] 10:26:[address] [place] [address] Laboratory Printed: 10/23/[address] [place] [address] DAEMPathology Page: 1 Patient: LESLEI VENTURA Birthdate: 1970 Age/Sex: 46/F Spec#: [id number]: [place] Kumar MD Specimen Date: 10/22/16 Received Date: 10/22/16 Specimen: STOMACH, RESECTION CLINICAL DIAGNOSIS morbid obesity PATHOLOGIC DIAGNOSIS Portion of stomach, resection: - Mild chronic inactive gastritis. - No Helicobacter pylori organisms identified. Comment: No Helicobacter pyloriorganisms are identified on Diff-Quik special stainperformed with adequate control. Pathologist:Adarsh Robert MD Entered by:10/23/16 - 1016 LAB.YGP PROCEDURES: 73959, 12660 GROSS DESCRIPTION A. STOMACH, RESECTION The specimen is received in 10% formalin, and is labeled with the patient's name and"portion of stomach". The specimen consists of a fu-pink crescent shaped tissue pbhreyfnw17.0 x 4.4 x 3.5 cm in greatest dimensions. The serosa is fu-pink, smooth and glisteningwith the staple margin running the length of the specimen. After the stapled margin isremoved, the mucosa reveals normal-appearing folds with no polyps or ulcerations grosslyidentified. Teller sections are submitted in four cassettes, A1- 4. Patient: LESLIE VENTURA Re10/22/16Loc: SURG A MR#: [id number] CONTINUED ON NEXT PAGE Dis: Sta: ADM IN [address] [address] Laboratory Printed: 10/23/[address] [place] [address] [facility] Page: 2 Patient: LESLIE VENTURA [id number] (Continued) GROSS DESCRIPTION (Continued) Section code:A1-2 - stapled marginA3-4 - mucosa Dictated by: Grace Castañeda Entered by: 10/22/16 - 1141 [facility] MICROSCOPIC DESCRIPTION A microscopic examination was performed to arrive at the diagnostic conclusion reported. Signed (Electronically Signed) Adarsh Robert MD 10/23/16 Patient: LESLIE VENTURA Re10/22/16Loc: NELLIE Yates MR#: [id number] END OF REPORT Dis: Sta: ADM [id number] 06:21:00 Test Item Value Reference Range Interpretation Comments Chemistry (test code 135 mmol/L 136-145 L = NA-T) Chemistry (test code 5.0 mmol/L 3.5-5.1 N = K-T) Chemistry (test code 106 mmol/L 98-107 N = CL) Chemistry (test code 24 mmol/L 22-29 N = CO2) Chemistry (test code 10 mmol/L 10-20 N = ANGP) Chemistry (test code 15 mg/dL 7.0-18.7 N = BUN) Chemistry (test code 0.89 mg/dL 0.6-1.1 N = CREATT) Chemistry (test code 68 Referen ce Range for = EGFRMDRD) Estimated GFR: Great er than 90 mL/min/1.73 m2NOTE:The MDRD equation has no t been validated for u se with theelderly (ove r 70 years of age), women, patientswith se rious comorbid condit ion or persons with ex tremes ofbody size, mu scle mass, or nutrit ional status. Chemistry (test code 158 mg/dL 70-105 H = GLU-T) Chemistry (test code 9.3 mg/dL 7.8-10.44 N = CA) Patient is [id number] 05:58:00 Test Item Value Reference Range Interpretation Comments Hematology (test code = WBCT) 10.8 thou/uL 4.8-10.8 N Hematology (test code = RBCT) 3.42 mill/uL 4.20-5.40 L Hematology (test code = HGBT) 11.9 g/dL 12.0-16.0 L Hematology (test code = HCTT) 33.6 % 36.0-47.0 L Hematology (test code = MCV) 98.4 fl 81.0-99.0 N Hematology (test code = MCH) 34.8 pg 27.0-31.0 H Hematology (test code = MCHC) 35.3 g/dL 32.0-36.0 N Hematology (test code = RDW) 10.5 % 11.5-14.5 L Hematology (test code = PLTT) 253 thou/uL 130-400 N Hematology (test code = MPV) 7.0 fL 7.4-10.4 L Hematology (test code = %NEUT) 77.8 % 42.0-75.0 H Hematology (test code = %LYMPH) 13.7 % 21.0-51.0 L Hematology (test code = %MONO) 8.2 % 0.0-10.0 N Hematology (test code = %EOS) 0.2 % 0.0-10.0 N Hematology (test code = %BASO) 0.0 % 0.0-1.0 N Hematology (test code = NEUT#) 8.4 thou/uL 1.40-6.50 H Hematology (test code = LYMPH#) 1.5 thou/uL 1.20-3.40 N Hematology (test code = MONO#) 0.9 thou/uL 0.11-0.59 H Hematology (test code = EOS#) 0.0 thou/uL 0.0-0.7 N Hematology (test code = BASO#) 0.0 thou/uL 0.0-0.2 N Patient is [id number] 17:43:00 Test Item Value Reference Range Interpretation Comments Chemistry (test code 139 mmol/L 136-145 N = NA-T) Chemistry (test code 3.6 mmol/L 3.5-5.1 N = K-T) Chemistry (test code 106 mmol/L 98-107 N = CL) Chemistry (test code 26 mmol/L 22-29 N = CO2) Chemistry (test code 11 mmol/L 10-20 N = ANGP) Chemistry (test code 17 mg/dL 7.0-18.7 N = BUN) Chemistry (test code 1.00 mg/dL 0.6-1.1 N = CREATT) Chemistry (test code 59 N Referen ce Range for = EGFRMDRD) Estimated GFR: Great er than 90 mL/min/1.73 m2NOTE:The MDRD equation has no t been validated for u se with theelderly (ove r 70 years of age), women, patientswith se rious comorbid condit ion or persons with ex tremes ofbody size, mu scle mass, or nutrit ional status. Chemistry (test code 73 mg/dL 70-105 N = GLU-T) Chemistry (test code 9.5 mg/dL 7.8-10.44 N = CA) Chemistry (test code 0.4 mg/dL 0.2-1.2 N = TBILI) Chemistry (test code 8.1 g/dL 6.0-8.3 N = TP) Chemistry (test code 4.5 g/dL 3.5-5.0 N = ALB) Chemistry (test code 3.6 g/dL 2.4-3.5 H = GLOB) Chemistry (test code 1.3 g/dL 1.2-2.2 N = AG) Chemistry (test code 49 U/L 40-150 N = ALP) Chemistry (test code 16 U/L 5-34 N = AST) Chemistry (test code 24 U/L 0-55 N = ALT) [id number] 17:43:00 Test Item Value Reference Range Interpretation Comments Chemistry (test code = DBILI) 0.2 mg/dL 0.1-0.3 N Chemistry - [id number] 17:09:00 Test Item Value Reference Range Interpretation Comments Chemistry - Specials NEGATIVE NEGATIVE N Method of sensitivity- (test code = BHCGST) Indeter minant: results should be repea gurvinder after 48 hours. Positive: results may be detected as early as 4-5 days befo re a first missed menses.Eliminat ion of BHCG- Eliminat ion following first trimester D C: 29-44 Days Eliminati on following term : 8-24 Days Chemistry - BNP, HgbA1c, [id number] 17:09:00 Test Item Value Reference Range Interpretation Comments Chemistry - BNP, 5.2 % 4.0-6.0 N Therapeutic goals for glycemic HgbA1c, PTHi (test control ( ADA)Adults:- Goal of code = OYFU1BE) therapy: Les s than 7.0% HbA1c- Action suggeste d: Greater than 8.0% LpZ2vGzyju tric patients:- Toddlers and pr eschoolers: Less than 8.5% (but Greater than 7.5%)- Leticia ool age (6-12 years): Less th an 8%- Adolescents and young adults (13-19 years): Less than 7.5%Diagnosing diabetes (ADA)- HbA1c: Greater than or equal to 6.5% Values of 5.7 - 6.4% indicate HIGH risk for developing DiabetesInterna tional Expert Committee Repor t on the Role of the B7BMxtoe in the Diagnosis of Di abetes. Diabetes Care 2009July;32(7): 1327-1334ADA, Diagnosis cla ssification of diabetes [facility].Diabetes Care 2010; 33 S uppl 1:S62 [id number] 17:08:00 Test Item Value Reference Range Interpretation Comments Hematology (test code = WBCT) 5.8 thou/uL 4.8-10.8 N Hematology (test code = RBCT) 3.89 mill/uL 4.20-5.40 L Hematology (test code = HGBT) 13.3 g/dL 12.0-16.0 N Hematology (test code = HCTT) 39.4 % 36.0-47.0 N Hematology (test code = MCV) 101.0 fl 81.0-99.0 H Hematology (test code = MCH) 34.3 pg 27.0-31.0 H Hematology (test code = MCHC) 33.8 g/dL 32.0-36.0 N Hematology (test code = RDW) 11.3 % 11.5-14.5 L Hematology (test code = PLTT) 290 thou/uL 130-400 N Hematology (test code = MPV) 6.8 fL 7.4-10.4 L Hematology (test code = %NEUT) 50.7 % 42.0-75.0 N Hematology (test code = %LYMPH) 37.7 % 21.0-51.0 N Hematology (test code = %MONO) 7.9 % 0.0-10.0 N Hematology (test code = %EOS) 2.6 % 0.0-10.0 N Hematology (test code = %BASO) 1.1 % 0.0-1.0 H Hematology (test code = NEUT#) 3.0 thou/uL 1.40-6.50 N Hematology (test code = LYMPH#) 2.2 thou/uL 1.20-3.40 N Hematology (test code = MONO#) 0.5 thou/uL 0.11-0.59 N Hematology (test code = EOS#) 0.2 thou/uL 0.0-0.7 N Hematology (test code = BASO#) 0.1 thou/uL 0.0-0.2 N US GUIDE FNA BIOPSY NECK/THYROID/HEADCLINICAL INDICATION: E04.1 Nontoxic single thyroid noduleMODALITY: [employer] PreirusTECHNIQUE: Informed consent is obtained. Benefits, risks and alternatives are discussed in detail with the patient. The neck is prepped and draped in routine fashion. 1% buffered lidocaine is used for local analgesia. Using ultrasound guidance, multiple passes are made into the suspicious area utilizing a 25 gauge needle. Slides are prepared and submitted for cytological analysis.Estimated blood loss: 0 ml. FINDINGS:Needle is depicted within the suspected lesion.IMPRESSION:1. Ultrasound - guidedbiopsy 3.7 x 2.1 cm right thyroid nodule. 2. Pathologic diagnosis: Negative for malignancy; histologic prediction is adenomatous nodule.This represents a concordant result.
--- NOTE | 2020-03-25 22:58 | CON ---
Date of Consultation: 03/22/2020 Reason For Consultation: Chest pain. History Of Present Illness: Ms. Rosa is 50-year-old, has a history of SVT, frequent PVCs, hypert ension, hypothyroidism, and mitral valve prolapse, who came in with an atypical chest pain. OR has b een ruled out. Her pain did not radiate. It was a pressure-like sensation. She has recently had a Holter monitor placed. Echocardiogram which was done today was normal with some mild tricuspid regur gitation. The case was discussed with Dr. Youssef. Her EKG showed normal sinus rhythm with nonspeci fic changes. Her chest x-ray was negative. I had recommended the patient to go home and have an out patient stress test. Past Medical History: As stated above. Allergies: NONE. Review of Systems: Noncontributory. Social History: Noncontributory. Family History: Noncontributory. Physical Examination: Unremarkable. Diagnostic Data: As stated earlier. Impression And Plan: This is a patient with mitral valve prolapse, history of premature ventricular contractions, atypical chest pain, normal echocardiogram, and normal cardiac workup, who can go home and we will recommend an outpatient stress test. HARRIETT/IRWIN Voice ID: [id number] Report ID: [id number]
== END 2020-03-22 12:13 | disposition home or self-care (01) ==
LOC: ER 22:15 → ERHOLD 03-22 01:21 → 2ND 03-22 05:57
PROVIDERS: ADMIT Internal Medicine; ATTEND Internal Medicine
DX: I24.9 Acute ischemic heart disease, unspecified (principal); I10 Essential (primary) hypertension; I34.1 Nonrheumatic mitral (valve) prolapse; I49.3 Ventricular premature depolarization; Z20.828 Contact with and (suspected) exposure to other viral communicable diseases; I47.1 Supraventricular tachycardia; Z98.84 Bariatric surgery status; E89.0 Postprocedural hypothyroidism; R94.31 Abnormal electrocardiogram [ECG] [EKG]
CPT/HCPCS: 96361; 93005; 93306; 85025; 80048; 36415; 83735; 85610; 80076; 84443; 84484 ×3; 84439; 83690; 83880; 71045; 96360; 99285; U0002; J7030 ×2; G0378 ×2